=== PATIENT | male | born 1935 | race Two or more races ===

== ENCOUNTER 2020-08-05 22:35 | Emergency (ER) | payer OTHER ==
[~2020-08-05] VITALS: Ht 167.6 cm; Wt 90.7 kg
[2020-08-05] MEDS ORDERED: LOTENSIN20 MG (22:49)
[2020-08-05] MEDS ORDERED: AZOR 5-20 MG T1 EACH (22:49)
[2020-08-05] MEDS ORDERED: ADULT LOW DOSE81 M1 (22:50)
[2020-08-05] MEDS ORDERED: RESTORIL7.5 MG (22:50)
[2020-08-06] MEDS ORDERED: SYMBICORT 80/10.2 GM IH (00:48)
[2020-08-06] MEDS ORDERED: KETO10TA2 PO (00:48)
[2020-08-06] MEDS ORDERED: ORPHENADRINE C100 MG PO (00:48)
== END 2020-08-06 01:18 | disposition home or self-care (01) ==
LOC: ER 22:35
DX: S80.01XA Contusion of right knee, initial encounter (principal); S20.211A Contusion of right front wall of thorax, initial encounter; W18.39XA Other fall on same level, initial encounter; Y93.89 Activity, other specified; Y92.018 Other place in single-family (private) house as the place of occurrence of the external cause; Y99.8 Other external cause status

== ENCOUNTER → 2020-12-08 12:13 | Outpatient (CLI) | payer OTHER ==
[~2020-12-08 12:13] MED LIST: ADULT LOW DOSE81 M1; AZOR 5-20 MG T1 EACH; KETO10TA2 PO; LOTENSIN20 MG; ORPHENADRINE C100 MG PO; RESTORIL7.5 MG; SYMBICORT 80/10.2 GM IH
== END | disposition home or self-care (01) ==
LOC: LAB 12:13
PROVIDERS: ATTEND Internal Medicine Cardiovascular Disease
DX: I50.89 Other heart failure (principal)

== ENCOUNTER 2021-06-08 17:40 | Emergency (ER) | payer OTHER ==
[~2021-06-08] VITALS: Ht 165.1 cm; Wt 81.2 kg
[2021-06-08] MEDS ORDERED: RESTORIL15 MG (18:28)
== END 2021-06-08 20:12 | disposition home or self-care (01) ==
LOC: ER 17:40
DX: S01.511A Laceration without foreign body of lip, initial encounter (principal); W18.39XA Other fall on same level, initial encounter; Y93.9 Activity, unspecified; Y92.9 Unspecified place or not applicable; Y99.9 Unspecified external cause status

== ENCOUNTER 2022-08-15 14:29 | Emergency (ER) | payer OTHER ==
[~2022-08-15] VITALS: Ht 162.6 cm; Wt 72.6 kg
[~2022-08-15 14:29] MED LIST changes: +RESTORIL15 MG
[2022-08-15] MEDS ORDERED: IBU800 MG PO (22:25)
== END 2022-08-15 22:44 | disposition home or self-care (01) ==
LOC: ER 14:29
DX: S39.82XA Other specified injuries of lower back, initial encounter (principal); W19.XXXA Unspecified fall, initial encounter; Y93.89 Activity, other specified; Y92.89 Other specified places as the place of occurrence of the external cause; I10 Essential (primary) hypertension; G20 Parkinson's disease